=== PATIENT | female | born 1960 | race Asian ===

== ENCOUNTER → 2019-03-20 | Outpatient (CLI) | payer OTHER ==
--- NOTE | 2019-03-20 09:21 | US ---
EXAMINATION TYPE: US abdomen comp/pelvis limited DATE OF EXAM: 03/20/2019 COMPARISON: NONE CLINICAL HISTORY: R94.5 Abnormal Liver Function, N18.3 CKD. Elevated liver enzymes, CKD EXAM MEASUREMENTS: Liver Length: 18.0 cm Gallbladder Wall: 0.3 cm CBD: 0.3 cm Spleen: 7.5 cm Right Kidney: 9.4 x 3.3 x 4.4 cm Left Kidney: 8.6 x 4.0 x 4.5 cm Pancreas: tail Obscured by bowel gas Liver: enlarged. There is increased echogenicity of the hepatic parenchyma with diminished visualiz ation of the portal triads most commonly relating to hepatic steatosis and limiting evaluation for un derlying hepatic masses. Gallbladder: no evidence of stones. No biliary sludge. No pericholecystic fluid. CBD: appears wnl Spleen: appears wnl Right Kidney: no evidence of hydronephrosis Left Kidney: No evidence of hydronephrosis Upper IVC: wnl Abd Aorta: visualized portions appear wnl Bladder: wnl Bilateral Jets Seen yes IMPRESSION: 1. Findings most commonly related to hepatic steatosis, mild in degree. Correlate with liver function tests. 2. No sonographic evidence of cholelithiasis nor acute cholecystitis.
[2019-03-20 18:15] LABS: Hepatitis B Core IgM Non-Reactive (Non-Reactive); Hepatitis B Surface AB- Quant 3.5 mIU/mL; Hepatitis C IgG Antibody Non-Reactive (Non-Reactive)
== END | disposition home or self-care (01) ==
LOC: RADUSWWP 07:53
PROVIDERS: ATTEND Internal Medicine
DX: R16.0 Hepatomegaly, not elsewhere classified (principal); N18.3 Chronic kidney disease, stage 3 (moderate); R76.8 Other specified abnormal immunological findings in serum
CPT/HCPCS: 36415; 76700; 76857; 86704; 86705; 86706; 86803; 87340

== ENCOUNTER → 2024-05-08 | Outpatient (CLI) | payer OTHER ==
--- NOTE | 2024-05-09 07:31 | XR ---
EXAMINATION TYPE: XR chest 2V DATE OF EXAM: 05/08/2024 COMPARISON: NONE TECHNIQUE: PA and lateral views submitted. HISTORY: Cough FINDINGS: The lungs are clear and there is no pneumothorax, pleural effusion, or focal pneumonia. Heart size normal and no overt failure. Osseous structures demonstrate hypertrophic and degenerative changes of the spine. Vague nodule outer margin of the left lower lobe measuring 8 mm. IMPRESSION: 1. No acute process. 2. Vague nodule left lower lobe too small to characterize. Recommend CT chest.
== END | disposition home or self-care (01) ==
LOC: RADXRYALE 16:33
PROVIDERS: ATTEND Internal Medicine
DX: J98.01 Acute bronchospasm (principal); R91.1 Solitary pulmonary nodule
CPT/HCPCS: 71046

== ENCOUNTER → 2025-02-19 | Outpatient (CLI) | payer OTHER ==
--- NOTE | 2025-02-19 10:15 | US ---
EXAMINATION TYPE: US kidneys/renal and bladder DATE OF EXAM: 02/19/2025 COMPARISON: US 03/20/2019 CLINICAL INDICATION: Female, 64 years old with history of N018.31; CKD TECHNIQUE: Grayscale imaging of the bilateral kidneys and urinary bladder: FINDINGS: EXAM MEASUREMENTS: Right Kidney: 9.2 x 3.9 x 3.6 cm Left Kidney: 8.2 x 4.3 x 4.1 cm Right Kidney: No evidence of hydro, small possible cystic lesion mid= 0.6 x 0.5 x 0.6 cm Left Kidney: Small in size as visualized on prior US/ No evidence of hydro, small cystic lesion later al/mid= 0.9 x 1.2 x 1.1 cm Bladder: Not fully distended, pt states bladder felt full Bilateral Jets seen: No There is no evidence for hydronephrosis at this point in time. Cortical medullary differentiation is maintained bilaterally. No significant cortical thinning. No nephrolithiasis is seen. Small mid righ t renal 0.6 cm simple cyst. Small simple cyst within the left lateral/mid kidney. No solid renal mass es are identified. The urinary bladder is underdistended and anechoic. This appearance limits evalua tion. IMPRESSION: 1. No hydronephrosis or nephrolithiasis. 2. Small bilateral simple renal cysts. [facility], , 02/19/2025 10:13 AM
[2025-02-20 03:21] LABS: Total Protein 24 Hour,Urine 299.2 mg/24Hr (0.0-165.0); Total Volume 24 Hour,Urine 2850 mL
== END | disposition home or self-care (01) ==
LOC: RADUSWWP 09:41
PROVIDERS: ATTEND Internal Medicine
DX: N28.1 Cyst of kidney, acquired (principal); N18.31 Chronic kidney disease, stage 3a
CPT/HCPCS: 76770; 81050; 84156